=== PATIENT | female | born 1980 | race Caucasian/White ===

== ENCOUNTER 2018-05-18 19:46 | Emergency (ER) | payer MEDICAID, OTHER ==
[2018-05-19] MEDS: DIAZEPAM 5 MG TAB PO (00:12)
== END 2018-05-19 03:10 | disposition home or self-care (01) ==
LOC: FTE 19:46
DX: G44.209 Tension-type headache, unspecified, not intractable (principal)
CPT/HCPCS: 99283; Z7502